=== PATIENT | male | born 1995 | race Caucasian/White ===

== ENCOUNTER 2020-09-08 12:44 | Emergency (ER) | payer OTHER ==
[~2020-09-08] VITALS: Ht 172.7 cm; Wt 88.4 kg
[2020-09-08 12:47] VITALS: BP 137/92
--- NOTE | 2020-09-08 13:49 | NUR ---
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
== END 2020-09-08 15:20 | disposition home or self-care (01) ==
LOC: ED 15:15
DX: S90.02XA Contusion of left ankle, initial encounter (principal); Z88.2 Allergy status to sulfonamides; W18.30XA Fall on same level, unspecified, initial encounter; Y93.89 Activity, other specified; Y92.69 Other specified industrial and construction area as the place of occurrence of the external cause; Y99.0 Civilian activity done for income or pay
CPT/HCPCS: 99284